=== PATIENT | female | born 1945 | race Caucasian/White ===

== ENCOUNTER 2020-12-13 11:29 | Day surgery (SDC) | payer MEDICARE, BC ==
[2020-12-13] VITALS (8 sets, daily range): BP systolic 114–149; BP diastolic 74–92; PULSE 66–86; TEMP 98.1
[~2020-12-13] VITALS: Ht 177.8 cm; Wt 89.6 kg
[2020-12-13 13:14] LABS: HEMATOCRIT 42.6 % (37.0-47.0); HEMOGLOBIN 14.1 g/dl (12.5-16.0); MEAN CELL VOLUME 90 fl (80.0-100.0); MEAN CORPUSCULAR HEMOGLOBIN 30 pg (27.0-31.0); MEAN CORPUSCULAR HGB CONC 33 g/dl (33.0-37.0); MEAN PLATELET VOLUME 8.9 fl (7.4-10.4); PLATELET COUNT 203 K/mm3 (130-400); RED BLOOD COUNT 4.74 M/mm3 (4.10-5.30); REDCELL DISTRIBUTION WIDTH-CV 13.2 % (11.5-14.5)
[2020-12-13 13:20] LABS: PROTHROMBIN TIME 11.2 SECONDS (9.7-12.8)
[2020-12-13 13:22] LABS: CALCIUM 8.9 mg/dL (8.4-10.2); CREATININE, serum 0.83 (0.52-1.25); POTASSIUM 4.8 mmol/L (3.4-5.0)
[2020-12-13] MEDS ORDERED: PRILOSEC 20MG20 MG PO (14:20)
[2020-12-13] MEDS ORDERED: AMOXICILLIN 50500 MG PO (14:20)
[2020-12-13] MEDS ORDERED: CYMBALTA 60MG60 MG PO (14:21)
[2020-12-13] MEDS ORDERED: LYRICA 100MG C100 M1 PO (14:22)
[2020-12-13] MEDS ORDERED: TOPROL XL 25MG25 MG PO (14:23)
[2020-12-13] MEDS ORDERED: PRADAXA 150MG150 MG PO (14:23)
[2020-12-13] MEDS ORDERED: ALLEGRA 180MG180 MG PO (14:24)
[2020-12-13] MEDS ORDERED: FLONASEALLERGY NS (14:25)
[2020-12-13] MEDS ORDERED: MAG-OX 400400 MG/TAB PO (14:27)
[2020-12-13] MEDS ORDERED: TYLENOL 500MG500 MG PO (14:27)
[2020-12-13] MEDS ORDERED: CENTRUM SILVER1 CTB PO (14:28)
[2020-12-13] MEDS ORDERED: BENTYL 10MG10 MG/CAP PO (14:28)
[2020-12-13] MEDS ORDERED: ANECREAM TD (14:29)
--- NOTE | 2020-12-13 17:30 | NUR ---
TR band has been deflated with no bleeding or hematoma. Rt radial site dressed with bandaid, folded 2x2 and coban, cms remains intact. We have reviewed dc and fu instructions. pt denies any questions at this time. IV is dc'd with cath intact, dressing applied. Pt has been ambulatory to and in room with steady gaits she is dressed and ready to go home. To exit via wheelchair at 1751.
== END 2020-12-13 19:06 | disposition home or self-care (01) ==
LOC: COL.CAR 11:29
PROVIDERS: Internal Medicine Interventional Cardiology
DX: R07.9 Chest pain, unspecified (principal); R94.39 Abnormal result of other cardiovascular function study; I10 Essential (primary) hypertension; I48.0 Paroxysmal atrial fibrillation; Z79.01 Long term (current) use of anticoagulants
CPT/HCPCS: C1769; J1644; J2250

== ENCOUNTER → 2021-09-30 | Outpatient (CLI) | payer MEDICARE, BC ==
[~2021-09-30] MED LIST: ALLEGRA 180MG180 MG PO; AMOXICILLIN 50500 MG PO; ANECREAM TD; BENTYL 10MG10 MG/CAP PO; CENTRUM SILVER1 CTB PO; CYMBALTA 60MG60 MG PO; FLONASEALLERGY NS; LYRICA 100MG C100 M1 PO; MAG-OX 400400 MG/TAB PO; PRADAXA 150MG150 MG PO; PRILOSEC 20MG20 MG PO; TOPROL XL 25MG25 MG PO; TYLENOL 500MG500 MG PO
== END ==
LOC: MC.RAD 16:52
DX: Z12.31 Encounter for screening mammogram for malignant neoplasm of breast (principal); N64.89 Other specified disorders of breast

== ENCOUNTER → 2021-10-31 | Outpatient (CLI) | payer MEDICARE, BC | LOC: MC.RAD 06:55 | DX: N64.89 Other specified disorders of breast (principal) ==

== ENCOUNTER → 2021-11-05 | Outpatient (CLI) | payer MEDICARE, BC | LOC: MC.RAD 13:46 | DX: C50.911 Malignant neoplasm of unspecified site of right female breast (principal); R92.0 Mammographic microcalcification found on diagnostic imaging of breast | CPT/HCPCS: 30634; 30635 ==

== ENCOUNTER 2021-11-20 09:20 | Day surgery (SDC) | payer MEDICARE, BC ==
[~2021-11-20] VITALS: Ht 180.3 cm; Wt 88.6 kg
[2021-11-20 10:22] VITALS: BP 113/80; PULSE 86; TEMP 98
[2021-11-20] MEDS ORDERED: TYLENOL PM EXTR1 TA1 PO (10:27)
[2021-11-20] MEDS ORDERED: SINGULAIR 110 MG/TAB PO (10:27)
[2021-11-20] MEDS ORDERED: CALCIUM CITRAT950 MG PO (10:28)
[2021-11-20 15:50] VITALS: BP 131/73; PULSE 71; TEMP 98
--- NOTE | 2021-11-20 15:50 | NUR ---
Patient arrived back into bay 1 from PACU. Patient alert and awake. Report recieved from ANSHUL Alexander. Patient denies pain or nausea at this time.
[2021-11-20 16:05] VITALS: BP 111/85; PULSE 81
--- NOTE | 2021-11-20 16:05 | NUR ---
Patient tolerated food and drink well with no complaint of nausea or pain. Incisions are clean, dry, and intact. CMS intact on surgerical extremity.
[2021-11-20 16:20] VITALS: BP 122/59; PULSE 80
--- NOTE | 2021-11-20 16:20 | NUR ---
Patient states she feels like she needs to use the restroom. IV removed without complications, instructed to apply pressure if site bleeds and remove dressing in 1 hour. Patient verbalized understanding. Patient ambulated to restroom using stand by assist and was able to void successfully. Patient then got dressed independently in room. Vital signs stable. Denies pain or nausea.
[2021-11-20] MEDS ORDERED: ULTRAM 50MG TAB50 MG PO (16:34)
[2021-11-20] MEDS ORDERED: MOTRIN 600600 MG/TAB PO (16:35)
--- NOTE | 2021-11-20 16:50 | NUR ---
Dr. Malik in to see patient. discussed finds during surgery. Then went through discharge instructions with patient. Questions answered. Patient verbalized understanding to educations. States daughter and are waiting in admissions area. Escorted patient to patient entrance via wheelchair where we met patient's daughter. Patient got into personal vehicle unassisted and left in the care of her daughter and .
== END 2021-11-20 17:00 | disposition home or self-care (01) ==
LOC: SDCO 09:20
DX: C50.511 Malignant neoplasm of lower-outer quadrant of right female breast (principal); Z17.0 Estrogen receptor positive status [ER+]; I12.9 Hypertensive chronic kidney disease with stage 1 through stage 4 chronic kidney disease, or unspecified chronic kidney disease; N18.30 Chronic kidney disease, stage 3 unspecified; K21.9 Gastro-esophageal reflux disease without esophagitis; G62.9 Polyneuropathy, unspecified; R73.03 Prediabetes; J30.9 Allergic rhinitis, unspecified; F41.9 Anxiety disorder, unspecified; F32.A Depression, unspecified; Z79.899 Other long term (current) drug therapy; Z93.2 Ileostomy status; Z90.49 Acquired absence of other specified parts of digestive tract; Z85.42 Personal history of malignant neoplasm of other parts of uterus
CPT/HCPCS: A4648; J0690; J1100; J1885; J2250; J2405; J2704; J2795; J3010; J7120

== ENCOUNTER 2021-12-18 10:23 | Day surgery (SDC) | payer MEDICARE, BC ==
[2021-12-18] VITALS (11 sets, daily range): BP systolic 93–137; BP diastolic 53–80; PULSE 62–87; TEMP 97.4–97.9
[~2021-12-18] VITALS: Ht 180.3 cm; Wt 89.1 kg
[~2021-12-18 10:23] MED LIST changes: +CALCIUM CITRAT950 MG PO; +LOPRESSOR 225 MG/TAB PO; +MOTRIN 600600 MG/TAB PO; +SINGULAIR 110 MG/TAB PO; -TOPROL XL 25MG25 MG PO; +TYLENOL PM EXTR1 TA1 PO; +ULTRAM 50MG TAB50 MG PO
[2021-12-18] MEDS ORDERED: TYLENOL 500MG500 MG PO (11:31)
[2021-12-18] MEDS ORDERED: BENTYL 10MG10 MG/CAP PO (11:33)
[2021-12-18] MEDS ORDERED: MAG-OX 400400 MG/TAB PO ×2 (16:43)
[2021-12-18] MEDS ORDERED: NAPROSYN500 MG PO (16:45)
--- NOTE | 2021-12-18 16:59 | NUR ---
PT IN ROOM, A&O X3 BUT IS A LITTLE DROWSY. @ BEDSIDE. PT STATES THAT SHE HAS NO PAIN @ THIS TIME, WORDS ARE SLIGHTLY SLURRED. PT HAS BEEN DRINKING WATER ET EATING JELLO WITH NO PROBLEMS, INSTRUCTED ON HOW TO ORDER MEALS. PT ET INFORMED OF VISITOR POLICY. DRESSING TO CHEST CDI, KYLE DRAIN IN PLACE. DRAINAGE IS SANGUINEOUS.
--- NOTE | 2021-12-18 21:32 | NUR ---
PATIENT IS ALERT AND ORIENTED. HERE FOR RIGHT SIDE MASTECTOMY. PATIENT TOLERATING DIET WELL. NO N/V. PATIENT HAD 45 OUT ON KYLE DRAIN. PATIENT GIVEN NIGHT MEDS, FLUIDS CONTINUED. AMBULATED TO BATHROOM TO VOID AND EMPTY COLOSTOMY BAG. PATIENT'S PRESSURE WERE SOFT RUNNING AT 99/56 AND 108/60. PATIENT STATED SHE WAS LIGHTHEADED. PATIENT TAKEN BACK TO BED AFTER BATHROOM. BP REPEATED AT 105/59. PATIENT IN BED WITH CALL LIGHT WITHIN REACH AND BED ALARM ACTIVATED. WILL CONTINUE TO MONITOR.
--- NOTE | 2021-12-18 21:55 | NUR ---
Up out of bed at this time. Ambulated approx 30 feet. Still unsteady on feet-c/o dizziness. To bathroom and voided without difficulty. Denies pain/nausea/shortness of breath. Call light in reach. Will monitor.
--- NOTE | 2021-12-18 21:59 | NUR ---
Resting eyes closed. No s/s of pain noted.
[2021-12-19 03:31] VITALS: BP 87/55; PULSE 58; TEMP 97.7
--- NOTE | 2021-12-19 03:47 | NUR ---
PATIENT HAS BEEN HAVING SOFT PRESSURES THROUGHOUT SHIFT. PCT NOTIFIED OF PRESSURES BEING 72/42 AND 87/55. CALLED FALGUNI FOR GUIDANCE. FALGUNI ORDERED BOLUS OF LR AT 200/HR FOR THREE HOURS. PATIENT DENIES ANY LIGHTHEADEDNESS. WILL CONTINUE TO MONITOR.
[2021-12-19 08:32] LABS: BASO % 0.3 % (0.0-2.0); GRAN # 6.7 K/mm3 (1.4-6.5); GRAN % 87.9 % (42.2-75.2); HEMATOCRIT 37.7 % (37.0-47.0); HEMOGLOBIN 12.5 g/dl (12.5-16.0); LYMPH # 0.6 K/mm3 (1.2-3.4); LYMPH % 8.4 % (20.0-51.0); MEAN CELL VOLUME 91 fl (80.0-100.0); MEAN CORPUSCULAR HEMOGLOBIN 30 pg (27-31); MEAN CORPUSCULAR HGB CONC 33 g/dl (33.0-37.0); MEAN PLATELET VOLUME 9.7 fl (7.4-10.4); MONO # 0.2 K/mm3 (0.1-0.6); MONO % 3.1 % (1.7-9.3); PLATELET COUNT 207 K/mm3 (130-400); RED BLOOD COUNT 4.15 M/mm3 (4.10-5.30)
[2021-12-19 08:52] LABS: CALCIUM 7.7 mg/dL (8.4-10.2); CREATININE, serum 1.48 mg/dL (0.57-1.11); POTASSIUM 4.5 mmol/L (3.5-4.5)
[2021-12-19 08:56] VITALS: BP 91/49; PULSE 71; TEMP 97.9
[2021-12-19 11:06] VITALS: BP 93/64; PULSE 70; TEMP 97.8
--- NOTE | 2021-12-19 11:33 | NUR ---
tar pot worker met with patient to discuss discharge plan. Patient's Art ([phone]) present at bedside. Patient and her both live at [facility]. Patient is independent with her ADL's and does not utilize any DME at home. No oxygen needs at home. PCP is Dr. Kidd and she utilizes [facility] for perscriptions with no cost difficulty. Patient reports to having a DPOA-HC established and a copy is on file at [facility]. Patient is planning on returning to apartment once medically ready. Discharge plan: Home; [facility]
--- NOTE | 2021-12-19 13:37 | NUR ---
PT SLEEPING IN BED, @ BEDSIDE. REPORTS THAT PT HAS WALKED IN HALLS AROUND UNIT X2. DENIES NEEDS. IVF INSFUSING. CALL LIGHT WITHIN REACH.
--- NOTE | 2021-12-19 16:00 | NUR ---
PT DISCHARGED TO HOME WITH SPOUSE. PT GIVEN DISCHARGE EDUCATION, SPECIFICALLY DRAIN ET INCISION CARE. PT VERBALIZES ET DEMONSTRATES UNDERSTANDING OF EDUCATION. PERIPHERAL IV DCED IN PT'S LEFT HAND, CATHETER TIP INTACT. PT DENIES HAVING ANY QUESTIONS @ THIS TIME. PT IS ESCORTED OUT VIA WC PUSHED BY JERZY BUNN.
== END 2021-12-19 16:00 | disposition home or self-care (01) ==
LOC: SDCO 10:23 → SURG 16:03 → SDCO 12-19 16:00
PROVIDERS: Surgery
DX: C50.511 Malignant neoplasm of lower-outer quadrant of right female breast (principal); Z17.0 Estrogen receptor positive status [ER+]; Z98.890 Other specified postprocedural states
CPT/HCPCS: OP; J0690; J1100; J1170; J1885; J2250; J2405; J2704; J3010; J7120

== ENCOUNTER 2022-06-08 04:31 | Inpatient (IN) | payer MEDICARE, BC ==
[~2022-06-08] VITALS: Ht 152.4 cm; Wt 87.6 kg
[~2022-06-08 04:31] MED LIST changes: +NAPROSYN500 MG PO
[2022-06-08] MEDS ORDERED: CORDARONE200 MG/TAB PO (05:15)
[2022-06-08] MEDS ORDERED: TOPROL XL 50MG50 MG PO (05:15)
[2022-06-08] MEDS ORDERED: ARIMIDEX1 MG PO ×2 (05:16→05:17)
[2022-06-08 05:17] LABS: BASO % 0.6 % (0.0-2.0); EOS # 0.1 K/mm3 (0.0-0.7); EOS % 0.9 % (0.0-4.0); GRAN # 5.8 K/mm3 (1.4-6.5); GRAN % 81.7 % (42.2-75.2); HEMATOCRIT 49.7 % (37.0-47.0); HEMOGLOBIN 16.3 g/dl (12.5-16.0); LYMPH # 0.5 K/mm3 (1.2-3.4); MEAN CELL VOLUME 91 fl (80.0-100.0); MEAN CORPUSCULAR HEMOGLOBIN 30 pg (27-31); MEAN CORPUSCULAR HGB CONC 33 g/dl (33.0-37.0); MEAN PLATELET VOLUME 9.3 fl (7.4-10.4); MONO # 0.7 K/mm3 (0.1-0.6); MONO % 9.7 % (1.7-9.3); PLATELET COUNT 292 K/mm3 (130-400); RED BLOOD COUNT 5.47 M/mm3 (4.10-5.30); REDCELL DISTRIBUTION WIDTH-CV 13.9 % (11.5-14.5)
[2022-06-08 05:33] LABS: ALBUMIN 4.4 gm/dL (3.4-4.8); BILIRUBIN,TOTAL 1.2 mg/dL (0.2-1.2); CALCIUM 10.3 mg/dL (8.4-10.2); CREATININE, serum 2.34 mg/dL (0.57-1.11); POTASSIUM 4.9 mmol/L (3.5-4.5); TOTAL PROTEIN 8.6 gm/dL (6.2-8.1)
[2022-06-08] MEDS ORDERED: LYRICA 75MG CAP75 MG PO (06:12)
--- NOTE | 2022-06-08 09:50 | NUR ---
PATIENT ADMITTED INTO ROOM 349 FROM ER WITH NG TO LIS. NG NOTED AT 53CM WITH SMALL AMOUNTS OF GREEN DRAINAGE NOTED. PLACED NG TO LIS IN ROOM. NO C/O N/V AT THIS TIME. PATIENT REPORTS SHE HAS HAD AN OSTOMY FOR 41 YEARS AND THIS IS HER 5TH OR 6TH TIMES WITH A SBO. NOTED SMALL LIQUID STOOL IN OSTOMY BAG, NO FLATUS. NOTED HYPOACTIVE BOWL SOUNDS. ABD IS ROUND. VSS ON TELE. PATIENT HAS CARDIAC HX INCLUDING A-FIB AND LOOP RECORDER. NPO. HASN'T TAKEN HOME MEDS SINCE YESTERDAY MORNING, SEE [facility]. IV FLUIDS INFUSING INTO LEFT WRIST IV. PATIENT ALSO REPORTS LOOSING HER BALANCE AND FALLING AT HOME WHICH IS NOT TYPICAL FOR HER, NOTED LARGE BRUISE ON LOWER BACK. PT/OT CONSULTED. HEAD TO TOE ASSESSMENT COMPLETE. ORIENTED TO ROOM. CALL LIGHT IN REACH.
[2022-06-08 09:59] VITALS: BP 124/83; PULSE 74; TEMP 98.1
--- NOTE | 2022-06-08 11:06 | NUR ---
PATIENT CALLED OUT C/O SEVERE RESTLESS LEGS. PATIENT IS NPO DUE TO SBO. NG TO LIS. CALLED HOSPITALIST, SEE NEW ORDER.
--- NOTE | 2022-06-08 11:20 | NUR ---
PATIENT CALLED OUT, BECAME NAUSEATED WITH NG TO LIS AND VOMITED APPROX 250CC OF GREEN EMESIS. ADVANCED NG TO 65CM, RESECURED NG TUBE, CLEANED PATIENT UP WITH LINEN CHANGED, AND SET UP A NEW SUCTION CANNISTER. NOTED 200CC OF GREEN EMESIS OUTPUT WHEN NG ADVANCED. WILL MONITOR.
[2022-06-08 12:15] VITALS: BP 107/32; PULSE 69; TEMP 98.6
[2022-06-08 15:29] VITALS: BP 132/68; PULSE 74; TEMP 98.1
[2022-06-08 19:45] VITALS: BP 117/61; PULSE 86; TEMP 98.4
--- NOTE | 2022-06-08 20:30 | NUR ---
PT A&OX4 RESTING IN BED. ASSESSMENT COMPLETE AND MEDS GIVEN. PT DENIES PN. PT NPO FOR BOWEL REST. NG TO LIS WITH GREEN EMESIS. COLOSTOMY WITH SOFT BROWN STOOL OUTPUT. VSS AND TELE IN PLACE FOR HX OF AFIB. NO NEEDS AT THIS TIME. CALL LIGHT WITHIN REACH.
[2022-06-08 23:19] VITALS: BP 121/60; PULSE 96; TEMP 97.9
--- NOTE | 2022-06-09 01:30 | NUR ---
PT REPORTS HAVING RESTLESS LEG PAIN BUT DECLINES WANTING TO TAKE SOMETHING FOR PAIN RELIEF.
--- NOTE | 2022-06-09 03:00 | NUR ---
PT COMPLAINING OF A LOT OF ABD PN AND SOME NAUSEA. IV ZOFRAN AND MORPHINE GIVEN. 75CC OF OUTPUT IN COLOSTOMY. NG TO LIS OUTPUTTING GREEN EMESIS. PT ALSO REPORTS DISCOMFORT IN HER BACK WHERE HER BRUISE IS FROM FALLING.
[2022-06-09 03:33] VITALS: BP 102/51; PULSE 98; TEMP 99.8
[2022-06-09 06:11] LABS: HEMATOCRIT 44.4 % (37.0-47.0); MEAN CELL VOLUME 93 fl (80.0-100.0); MEAN CORPUSCULAR HEMOGLOBIN 30 pg (27-31); MEAN CORPUSCULAR HGB CONC 32 g/dl (33.0-37.0); MEAN PLATELET VOLUME 9.8 fl (7.4-10.4); PLATELET COUNT 236 K/mm3 (130-400); RED BLOOD COUNT 4.77 M/mm3 (4.10-5.30); REDCELL DISTRIBUTION WIDTH-CV 13.7 % (11.5-14.5)
[2022-06-09 06:15] LABS: HEMOGLOBIN 14.3 g/dl (12.5-16.0)
[2022-06-09 06:28] LABS: ALBUMIN 3.5 gm/dL (3.4-4.8); CALCIUM 9.2 mg/dL (8.4-10.2); CREATININE, serum 2.09 mg/dL (0.57-1.11); MAGNESIUM 2.3 mg/dL (1.6-2.6); PHOSPHOROUS 5.2 mg/dL (2.3-4.7); POTASSIUM 4.6 mmol/L (3.5-4.5)
--- NOTE | 2022-06-09 06:30 | NUR ---
LAB CALLED W WBC OF 1.9. CALL DR CARSON TO REPORT W NO ANSWER.
[2022-06-09 06:58] LABS: BAND 31 % (0-10); EOSINOPHIL 2 % (0-4); LYMPHOCYTE 41 % (20.0-51.0); NEUTROPHILS 15 % (42.0-75.2); PLATELET ESTIMATE NORMAL (NORMAL)
[2022-06-09 07:09] VITALS: BP 116/56; PULSE 88; TEMP 99.1
--- NOTE | 2022-06-09 09:00 | NUR ---
PATIENT'S CALLED OUT STATING PATIENT WAS GETTING SICK. UPON ENTERING ROOM PATIENT DID HAVE SMALL AMOUNTS OF CLEAR PHLEGM NOTED IN EMESIS BASIN. PATIENT REPORTS SHE TYPICALLY TAKES 2 DIFFERENT MEDICATIONS AT HOME IN THE MORNING TO HELP WITH HER CHRONIC PHLEGM ISSUES. PATIENT ASSISTED TO BRUCH TEETH, SWAB MOUTH, AND SIT UP IN BED INTO THE CHAIR POSITION. NURSING TALKED WITH HOSPITALIST AND PHARMACIST ABOUT MED OPTIONS THE PATIENT IS NPO. NG TO LIS WITH APPROX 500CC OF GREEN DRAINAGE NOTED. PROVIDERS TALKED WITH PATIENT, SHE FEELS BRUSHING TEETH, WETTING MOUTH AND SITTING UP HAS HELPED, DENIES NEED FOR ANYTHING ELSE AT THIS TIME. WILL MONITOR.
--- NOTE | 2022-06-09 09:08 | NUR ---
Initial visit; Patient and her thanked [employer] for listening and offering prayer and hope for relief for her health issues. is experiencing a great deal of pain waiting for her body to heal itself before the Dr's take further steps.
--- NOTE | 2022-06-09 09:31 | NUR ---
Patient prescribed hazardous medication: anastrozole. Staff to follow chemo precautions when handling stool for 10 days following last administration. Med rec states last dose 06/[address] until 06/16 unless active then ongoing. Sign placed outside patient room and notified care team.
[2022-06-09 12:00] VITALS: BP 112/58; PULSE 88; TEMP 97.9
--- NOTE | 2022-06-09 13:44 | NUR ---
Microfilm Technician met with patient to discuss discharge planning. Patient lives at [facility] with her , Uriah (ph#[phone]). Patient stated they moved back to [facility] to be close to family like her sister, Deandra (ph#[phone]) who is at bedside. Patient sees Dr. Kidd for primary care and obtains medications from [facility] with no difficulties. Patient does not use any DME and is independent with ADLS. Patient advised she has DPOA-HC which designates her spouse and sister, however there is no copy in EMR. Patient states [facility] likely has a copy. Patient plans to return home at time of discharge and is hopeful no surgical intervention will be needed during her hospital stay. Discharge Plan: [facility]
[2022-06-09 15:42] VITALS: BP 100/49; PULSE 75; TEMP 98.6
--- NOTE | 2022-06-09 17:45 | NUR ---
NOTED PATIENT'S B/P IS SOFT AT 100/49. CALLED HOSPITALIST ABOUT 1645 DOSE OF IV TOPROLOL, HELD PER VERBAL ORDERS.
[2022-06-09 19:42] VITALS: BP 124/63; PULSE 87; TEMP 98.7
[2022-06-09 23:31] VITALS: BP 108/51; PULSE 78; TEMP 98.4
[2022-06-10 03:24] VITALS: BP 109/54; PULSE 72; TEMP 97.4
[2022-06-10 06:07] LABS: HEMATOCRIT 42.1 % (37.0-47.0); HEMOGLOBIN 13.7 g/dl (12.5-16.0); MEAN CELL VOLUME 93 fl (80.0-100.0); MEAN CORPUSCULAR HEMOGLOBIN 30 pg (27-31); MEAN CORPUSCULAR HGB CONC 33 g/dl (33.0-37.0); MEAN PLATELET VOLUME 9.8 fl (7.4-10.4); PLATELET COUNT 219 K/mm3 (130-400); RED BLOOD COUNT 4.53 M/mm3 (4.10-5.30); REDCELL DISTRIBUTION WIDTH-CV 13.7 % (11.5-14.5)
[2022-06-10 06:36] LABS: ALBUMIN 3.3 gm/dL (3.4-4.8); CALCIUM 8.7 mg/dL (8.4-10.2); CREATININE, serum 1.83 mg/dL (0.57-1.11); MAGNESIUM 2.2 mg/dL (1.6-2.6); PHOSPHOROUS 3.7 mg/dL (2.3-4.7); POTASSIUM 4.1 mmol/L (3.5-4.5)
[2022-06-10 07:07] LABS: BAND 51 % (0-10); LYMPHOCYTE 20 % (20.0-51.0); NEUTROPHILS 19 % (42.0-75.2)
[2022-06-10 07:08] LABS: PLATELET ESTIMATE NORMAL (NORMAL)
[2022-06-10 08:08] VITALS: BP 109/74; PULSE 74; TEMP 98
--- NOTE | 2022-06-10 09:30 | NUR ---
Pt impatient this am regarding NG tube, little output and was questioning placement. Dr Mullen did round and removed NG tube. Pt very happy about his. Discussed her new orders for diet and assisted her with ordering at this time. Pt not having any pain complaints and it wanting to go home as soon as possible. Made her aware that the hospitalist will have to round and give the orders for her to go home. Educated that we will want her to get something to eat and ensure that she does okay with that. All questions answered, call light within reach
[2022-06-10 11:02] VITALS: BP 123/59; PULSE 87; TEMP 98
--- NOTE | 2022-06-10 12:49 | NUR ---
PT JUST TOOK A NAP, FAMILY AT BEDSIDE, TOLERATING WELL HER FLUIDS, DENIES PAIN AT THIS TIME, WILL CONTINUE TO MONITOR.
== END 2022-06-10 14:22 | disposition home or self-care (01) | DRG 683 ==
LOC: COL.ER 04:31 → SURG 07:22 → COL.ER 08:22 → SURG 09:30
PROVIDERS: Emergency Medicine; ADMIT Internal Medicine
DX: N17.9 Acute kidney failure, unspecified (principal); K56.609 Unspecified intestinal obstruction, unspecified as to partial versus complete obstruction; G25.81 Restless legs syndrome; I48.0 Paroxysmal atrial fibrillation; E86.0 Dehydration; D72.819 Decreased white blood cell count, unspecified; Z72.89 Other problems related to lifestyle; Z90.11 Acquired absence of right breast and nipple; Z88.5 Allergy status to narcotic agent; Z88.2 Allergy status to sulfonamides; Z90.710 Acquired absence of both cervix and uterus; Z85.3 Personal history of malignant neoplasm of breast
CPT/HCPCS: J1885; J2270; J2405; J7030; J7120

== ENCOUNTER → 2024-07-11 | Outpatient (CLI) | payer MEDICARE, BC ==
[~2024-07-11] MED LIST changes: +ARIMIDEX1 MG PO; +CORDARONE200 MG/TAB PO; +LYRICA 75MG CAP75 MG PO; +TOPROL XL 50MG50 MG PO
== END ==
LOC: COL.RAD 07:18
DX: G45.9 Transient cerebral ischemic attack, unspecified (principal)